=== PATIENT | male | born 1980 | race African-American/Black ===

== ENCOUNTER 2020-07-18 01:07 | Observation (INO) | payer OTHER ==
[2020-07-18] MEDS ORDERED: SODIUM CHLORIDE 0.9% 1,000 ML IV STA (01:25)
[2020-07-18] MEDS ORDERED: ONDANSETRON 4 MG/2 ML VIAL IVP STA (01:25)
[2020-07-18] MEDS ORDERED: HYDROmorphone 0.5 MG/0.5 ML SYRINGE IVP STA ×2 (01:25→03:44)
[2020-07-18] MEDS ORDERED: diphenhydrAMINE 50 MG/ML 1 ML VIAL IVP STA (01:25)
[2020-07-18] MEDS ORDERED: FAMOTIDINE 20 MG/2 ML VIAL IV STA (01:26)
[2020-07-18 02:46] LABS: ALT 20 U/L (4-49); AST 22 U/L (17-59); African American GFR (CKD) >90 (>60 ml/min/1.73 sqM); Albumin 4.5 g/dL (3.5-5.0); Alkaline Phosphatase 72 U/L (38-126); Anion Gap 10 mmol/L; Blood Urea Nitrogen 18 mg/dL (9-20); Calcium 10.4 mg/dL (8.4-10.2); Carbon Dioxide 29 mmol/L (22-30); Chloride 100 mmol/L (98-107); Glucose 121 mg/dL (74-99); Lipase 99 U/L (23-300); Non-African American GFR(CKD) >90 (>60 ml/min/1.73 sqM); Potassium 3.8 mmol/L (3.5-5.1); Sodium 139 mmol/L (137-145); Total Bilirubin 1.1 mg/dL (0.2-1.3); Total Protein 7.3 g/dL (6.3-8.2)
[2020-07-18 03:13] LABS: Anisocytosis Slight; Basophils # (A) 0.1 k/uL (0-0.2); Basophils % (A) 1 %; Eosinophils # (A) 0.1 k/uL (0-0.7); Eosinophils % (A) 1 %; HCT 33.4 % (39.0-53.0); HGB 9.9 gm/dL (13.0-17.5); Hypochromasia Marked; Lymphocytes # (A) 2.6 k/uL (1.0-4.8); Lymphocytes % (A) 31 %; MCH 20.9 pg (25.0-35.0); MCHC 29.7 g/dL (31.0-37.0); MCV 70.3 fL (80.0-100.0); Mean Platelet Volume 6.3; Microcytosis Marked; Monocytes # (A) 0.9 k/uL (0-1.0); Monocytes % (A) 10 %; Neutrophils # (A) 4.7 k/uL (1.3-7.7); Neutrophils % (A) 55 %; Platelet Count 469 k/uL (150-450); Poikilocytosis Moderate; RBC 4.75 m/uL (4.30-5.90); RDW 18.2 % (11.5-15.5); WBC 8.5 k/uL (3.8-10.6)
--- NOTE | 2020-07-18 03:23 | ED ---
Abdominal Pain HPI - General Chief Complaint: Abdominal Pain Stated Complaint: ABD Pain Time Seen by Provider: 07/18/20 01:20 Source: patient Mode of arrival: ambulatory Limitations: no limitations - History of Present Illness Initial Comments: 40 year-old male patient presents to the emergency department for evaluation of abdominal pain, nausea, and vomiting. States symptoms started yesterday morning and have been persistent. Patient apparent was at [facility] and left prior to completing treatment, he arrived with an IV in the left arm. Patient states that he has been having this same pain and symptoms for the last couple of years. States that he was supposed to get an upper GI scope and never followed up. He does take carafate and other medications for his symptoms. He denies any fever or chills. Denies any pain radiating to his back. Denies hematemesis, hematochezia, melena. Denies fever or chills. States his last bowel movement was 2 days ago. Does admit to smoking marijuana almost on a daily basis. Denies any other street drugs or alcohol use. Patient denies any recent rash, cough, shortness of breath, chest pain, numbness, tingling, dizziness, weakness, hematuria, dysuria, urinary urgency, urinary frequency, headache, visual changes, or any other complaints. - Related Data Allergies Allergy/AdvReac Type Severity Reaction Status Date / Time No Known Allergies Allergy Verified 07/18/20 01:16 Review of Systems ROS Statement: Those systems with pertinent positive or pertinent negative responses have been documented in the HPI. ROS Other: All systems not noted in ROS Statement are negative. Past Medical History Past Medical History: GERD/Reflux, GI Bleed, Hypertension History of Any Multi-Drug Resistant Organisms: None Reported Past Surgical History: No Surgical Hx Reported Past Psychological History: No Psychological Hx Reported Smoking Status: Never smoker, Vaper Past Alcohol Use History: Rare Past Drug Use History: Marijuana General Exam Limitations: no limitations General appearance: alert, in no apparent distress, other (Physical well- developed, well-nourished adult male patient in no acute distress. Vital signs upon presentation temperature 97.8F, pulse 96, respirations 20, blood pressure 146/85, pulse ox 99% on room air.) Eye exam: Present: normal appearance, PERRL, EOMI. Absent: scleral icterus, conjunctival injection, periorbital swelling ENT exam: Present: normal exam, normal oropharynx, mucous membranes moist Respiratory exam: Present: normal lung sounds bilaterally. Absent: respiratory distress, wheezes, rales, rhonchi, stridor Cardiovascular Exam: Present: regular rate, normal rhythm, normal heart sounds. Absent: systolic murmur, diastolic murmur, rubs, gallop, clicks GI/Abdominal exam: Present: soft, normal bowel sounds. Absent: distended, tenderness, guarding, rebound, rigid Neurological exam: Present: alert, oriented X3, CN II-XII intact Psychiatric exam: Present: normal affect, normal mood Skin exam: Present: warm, dry, intact, normal color. Absent: rash Course Vital Signs 07/18/20 07/18/20 01:13 01:26 Temperature 97.8 F Pulse Rate 96 74 Respiratory 20 15 Rate Blood Pressure 146/85 149/98 O2 Sat by Pulse 99 100 Oximetry Medical Decision Making - Medical Decision Making 40 year-old male patient presents with abdominal pain and vomiting since yesterday morning. States he has similar symptoms intermittently over the last couple of years. Currently taking carafate and "other stomach medications". Physical exam reveals soft/non-tender abdomen. Labs reviewed and showed hgb 9.9. Patient denies history of anemia or low hgb. Patient has received care at [facility], did request records...request still pending. Denies any bloody or black bowel movements. Did attempt a rectal exam for occult blood, no stool in the rectal vault. Signs are stable. Patient will be admitted to the hospital for repeat CBCs and further evaluation by GI. Patient is agreeable to this plan. Case discussed with my attending Dr. Cole. - Lab Data Result diagrams: 07/18/20 01:25 07/18/20 01:25 Lab Results 07/18/20 07/18/20 07/18/20 Range/Units 01:25 01:25 01:26 WBC 8.5 (3.8-10.6) k/uL RBC 4.75 (4.30-5.90) m/uL Hgb 9.9 L (13.0-17.5) gm/dL Hct 33.4 L (39.0-53.0) % MCV 70.3 L (80.0-100.0) fL MCH 20.9 L (25.0-35.0) pg MCHC 29.7 L (31.0-37.0) g/dL RDW 18.2 H (11.5-15.5) % Plt Count 469 H (150-450) k/uL MPV 6.3 Hypochromasia Marked Poikilocytosis Moderate Anisocytosis Slight Microcytosis Marked Sodium 139 (137-145) mmol/L Potassium 3.8 (3.5-5.1) mmol/L Chloride 100 (98-107) mmol/L Carbon Dioxide 29 (22-30) mmol/L Anion Gap 10 mmol/L BUN 18 (9-20) mg/dL Creatinine 0.76 (0.66-1.25) mg/dL Est GFR (CKD-EPI)AfAm >90 (>60 ml/min/1.73 sqM) Est GFR (CKD-EPI)NonAf >90 (>60 ml/min/1.73 sqM) Glucose 121 H (74-99) mg/dL Plasma Lactic Acid Kevin 0.8 (0.7-2.0) mmol/L Calcium 10.4 H (8.4-10.2) mg/dL Total Bilirubin 1.1 (0.2-1.3) mg/dL AST 22 (17-59) U/L ALT 20 (4-49) U/L Alkaline Phosphatase 72 (38-126) U/L Total Protein 7.3 (6.3-8.2) g/dL Albumin 4.5 (3.5-5.0) g/dL Lipase 99 (23-300) U/L Disposition Clinical Impression: Abdominal pain, GI bleed Disposition: ADMITTED IP TO THIS [facility] Condition: Serious Referrals: None,Stated [Primary Care Provider] - 1-2 days Decision to Admit Reason: Admit from EC Decision Date: 07/18/20 Decision Time: 03:45
[2020-07-18] MEDS ORDERED: PANTOPRAZOLE 40 MG/10 ML VIAL IVP STA (03:50)
[2020-07-18] MEDS ORDERED: ONDANSETRON 4 MG/2 ML VIAL IVP PRN (03:50)
[2020-07-18] MEDS ORDERED: NALOXONE 0.4 MG/ML 1 ML VIAL IV PRN (03:50)
[2020-07-18] MEDS ORDERED: SODIUM CHLORIDE 0.9% 1,000 ML IV SCH (04:00)
[2020-07-18 04:45] LABS: Polychromasia Present
[2020-07-18 04:46] LABS: Ovalocytes Present; RBC Fragments Present; Target Cells Present
[2020-07-18 04:51] LABS: Anisocytosis Slight; HCT 29.2 % (39.0-53.0); HGB 8.9 gm/dL (13.0-17.5); Hypochromasia Marked; MCH 21.7 pg (25.0-35.0); MCHC 30.7 g/dL (31.0-37.0); MCV 70.8 fL (80.0-100.0); Mean Platelet Volume 8.1; Microcytosis Marked; Platelet Count 421 k/uL (150-450); Poikilocytosis Moderate; RBC 4.12 m/uL (4.30-5.90); RDW 18.2 % (11.5-15.5); WBC 9.3 k/uL (3.8-10.6)
--- NOTE | 2020-07-18 05:37 | P.HPIM ---
History of Present Illness H&P Date: 07/18/20 Chief Complaint: Epigastric abdominal pain 40-year-old male with history of GERD Patient comes in with 1 day history of recurrent gastric abdominal pain he claims it's problem has been going on for about couple years now he denies any GI bleeding or melena. Patient seemed to be sleepy and disengaged looks like he is providing unreliable history. He claimed that he went to [facility] as he got care over there in the past he also claims that he had upper GI scoping in [place] for similar problem. He is not sure if any diagnoses he was waiting in the ER got frustrated and decided to leave the hospital. ER noted that he arrived here with an IV line in his arm. Patient reports that since yesterday he's been having repeated episodes of vomiting he described it as yellowish in color denies any bleeding or coffee- ground vomiting he otherwise denies any chest pain or trouble breathing denies any headache dizziness or lightheadedness denies any fevers or chills denies any sick contact denies any recent travel he denies any changes in his bowel habits he denies any melena or bloody bowel movement In the ED blood work did show severe microcytic anemia with picture suggestive of iron deficiency anemia slightly elevated platelets. Patient admitted for further care and close monitoring Patient denies any heavy alcohol consumption or daily consumption, he denies any drugs other than using marijuana. He admits to smoking. Patient denies any blood thinners. He admits to occasional NSAIDs last dose was yesterday when he started having the epigastric pain but he denies taking it on regular basis Review of Systems Pertinent positives as noted in HPI. All other systems were reviewed and are negative Past Medical History Past Medical History: GERD/Reflux, GI Bleed, Hypertension History of Any Multi-Drug Resistant Organisms: None Reported Past Surgical History: No Surgical Hx Reported Past Psychological History: No Psychological Hx Reported Smoking Status: Never smoker, Vaper Past Alcohol Use History: Rare Past Drug Use History: Marijuana - Past Family History Family Family Medical History: No Reported History Medications and Allergies Allergies Allergy/AdvReac Type Severity Reaction Status Date / Time No Known Allergies Allergy Verified 07/18/20 01:16 Physical Exam Vitals: Vital Signs Temp Pulse Resp BP Pulse Ox 07/18/20 04:51 83 17 135/95 99 07/18/20 01:26 74 15 149/98 100 07/18/20 01:13 97.8 F 96 20 146/85 99 Intake and Output 07/17/20 07/17/20 07/18/20 14:59 22:59 06:59 Other: Weight 77.111 kg Constitutional: No acute distress, conversant, pleasant Eyes: Anicteric sclerae, moist conjunctiva, Pupils equal round reactive to light ENMT: NC/AT Oropharynx clear, no erythema, or exudates Neck: Supple, FROM, no masses, or JVD No carotid bruits No thyromegaly Lungs: Clear to auscultation Clear to percussion Normal respiratory effort, no accessory muscle use Cardiovascular: Heart regular in rate and rhythm, No murmurs, gallops, or rubs No peripheral edema Abdominal: Soft, slight discomfort to deep palpation of epigastric region no guarding, rebound or rigidity Abdomen moving with respiration Normoactive bowel sounds No hepatomegaly, No splenomegaly No palpable mass No abdominal wall hernia noted Skin: Normal temperature, tone, texture, turgor No induration No subcutaneous nodules No rash, lesions No ulcers Tattoos throughout his body Extremities: No digital cyanosis No clubbing Pedal pulses intact and symmetrical Radial pulses intact and symmetrical No calf tenderness Psychiatric: Alert and oriented to person, place and time Appropriate affect fair judgement Neuro Muscles Strength 5/5 in all 4 extremities Sensation to light touch grossly present throughout Cranial nerves II-XII grossly intact No focal sensory deficits Lymphatics: no palpable cervical or supraclavicular , or inguinal lymph nodes Results CBC & Chem 7: 07/18/20 04:40 07/18/20 01:25 Labs: Abnormal Lab Results - Last 24 Hours (Table) 07/18/20 07/18/20 07/18/20 Range/Units 01:25 01:25 04:40 RBC 4.12 L (4.30-5.90) m/uL Hgb 9.9 L 8.9 L (13.0-17.5) gm/dL Hct 33.4 L 29.2 L (39.0-53.0) % MCV 70.3 L 70.8 L (80.0-100.0) fL MCH 20.9 L 21.7 L (25.0-35.0) pg MCHC 29.7 L 30.7 L (31.0-37.0) g/dL RDW 18.2 H 18.2 H (11.5-15.5) % Plt Count 469 H (150-450) k/uL Glucose 121 H (74-99) mg/dL Calcium 10.4 H (8.4-10.2) mg/dL Assessment and Plan Assessment: Severe microcytic anemia unknown baseline Possible chronic upper GI bleeding secondary to long history of GERD Epigastric abdominal pain Plan Nothing by mouth IV fluid hydration Protonix IV twice a day GI consultation to consider EGD Obtain records Pain control with opiates Monitor hemoglobin every 6 hours CODE STATUS: Full code DVT prophylaxis: Mechanical Discussed with: Patient, ER, Anticipated length of stay less than [address]: Home A total of 65 minutes was spent on the care of this complex patient more than 50% of the time was spent in counseling and care coordination.
[2020-07-18] MEDS ORDERED: PANTOPRAZOLE 40 MG/10 ML VIAL IVP SCH ×2 (09:00→10:00)
[2020-07-18 09:42] VITALS: RESP 18
[2020-07-18] MEDS: HYDROmorphone 0.5 MG/0.5 ML SYRINGE IVP PRN ×2 (09:42→13:12)
[2020-07-18 10:56] LABS: Anisocytosis Slight; HCT 29.6 % (39.0-53.0); HGB 9.1 gm/dL (13.0-17.5); Hypochromasia Marked; MCHC 30.9 g/dL (31.0-37.0); MCV 71.1 fL (80.0-100.0); Mean Platelet Volume 7.4; Microcytosis Marked; Platelet Count 409 k/uL (150-450); Poikilocytosis Moderate; RBC 4.16 m/uL (4.30-5.90); WBC 8.3 k/uL (3.8-10.6)
--- NOTE | 2020-07-18 11:17 | P.PN ---
Progress Note - Text Progress Note Date: 07/18/20 Patient is seen and examined again today. No chest pain no abdominal pain. No gross bleeding. Continue PPI and IV fluids, monitor H&H. GI consultation.
[2020-07-18] MEDS ORDERED: LIDOCAINE 1% INJ 10MG/ML (20 ML MDV) ONE (13:25)
[2020-07-18] MEDS ORDERED: PROPOFOL 10 MG/ML 20 ML VIAL IV ONE (13:25)
[2020-07-18] MEDS ORDERED: GLYCOPYRROLATE 0.2 MG/ML 2 ML VIAL ONE (13:25)
[2020-07-18] MEDS ORDERED: KETAMINE 10 MG/ML 20 ML VIAL ONE (13:25)
[2020-07-18] MEDS ORDERED: IV FLUID CONTINUATION 1,000 ML IV ONE (13:38)
--- NOTE | 2020-07-18 13:56 | P.CONS ---
History of Present Illness - Reason for Consult Consult date: 07/18/20 GI bleed Requesting physician: Frank Smith - Chief Complaint Abdominal pain - History of Present Illness 40-year-old male with a medical history significant for reflux and presented in for abdominal pain. The patient reports long-standing history of pain in the stomach going on for years. He reports associated nausea and episodes of vomiting. Yesterday he reports 5 episodes of nonbloody emesis. He does report intermittently seen coffee-ground emesis and dark stools in the past but none recently. He denies any history of peptic ulcer disease but does report a long- standing history of reflux on Carafate and PPI therapy. He reports that previously he had a EGD 2-3 months ago in [place] and was told to follow-up but failed to do so. He denies any prior colonoscopy. He denies any tobacco use and reports only occasional alcohol use. He also reports previously being told of a hiatal hernia and hypertension. He denies any NSAID use. He does use marijuana frequently. He was recently at [facility] in the waiting room for similar complaints but left due to the wait. Review of Systems REVIEW OF SYSTEMS: CONSTITUTIONAL: Denies any fevers, chills, weight change or fatigue. CARDIOVASCULAR: Denies any chest pain, palpitations high or low blood pressures, but does report a history of hypertension. RESPIRATORY: Denies any shortness of breath, hemoptysis or cough. GENITOURINARY: No dysuria or hematuria. MUSCULOSKELETAL: No weakness reported. SKIN: Denies any new rashes or lesions, jaundice or pallor. PSYCHIATRIC: Denies any depression or anxiety, does report frequent marijuana us e. NEUROLOGY: Denies headache, denies any new focal deficits. EARS/NOSE/THROAT: No recent hearing change, congestion, nasal discharge or sore throat. EYES: No pain in eyes, discharge or change in vision. GASTROINTESTINAL: As per HPI. Past Medical History Past Medical History: GERD/Reflux, GI Bleed, Hypertension Additional Past Medical History / Comment(s): Abdominal pain/nausea and vomiting past couple years/recently seen at [facility] but left before work up complete, upper and lower GI bleeds History of Any Multi-Drug Resistant Organisms: None Reported Past Surgical History: No Surgical Hx Reported Past Anesthesia/Blood Transfusion Reactions: Unable to Obtain Additional Past Anesthesia/Blood Transfusion Reaction / Comm: Pt states never had surgery. Smoking Status: Vaper - Past Family History Mother Family Medical History: No Reported History Additional Family Medical History / Comment(s): Mother is healthy. Father History Unknown: Yes Family Family Medical History: No Reported History Medications and Allergies Home Medications Medication Instructions Recorded Confirmed Type No Known Home Medications 07/18/20 07/18/20 History Allergies Allergy/AdvReac Type Severity Reaction Status Date / Time No Known Allergies Allergy Verified 07/18/20 06:59 Physical Exam Vitals: Vital Signs Temp Pulse Resp BP Pulse Ox 07/18/20 09:40 64 18 142/93 100 07/18/20 04:51 83 17 135/95 99 07/18/20 01:26 74 15 149/98 100 07/18/20 01:13 97.8 F 96 20 146/85 99 Intake and Output 07/17/20 07/18/20 07/18/20 22:59 06:59 14:59 Other: Weight 77.111 kg 77.111 kg On physical examination, patient appears comfortable in no apparent distress. HEAD: Normocephalic, atraumatic. EYES: No scleral icterus. No conjunctival injection. MOUTH: No lesions, tongue midline. NECK: Trachea midline, no gross abnormalities. CHEST: Clear to auscultation with no wheezing or rhonchi appreciated. HEART: Regular rate and rhythm. ABDOMEN: Soft, nontender to palpation. Bowel sounds are positive. No organomegaly. No guarding or rigidity. EXTREMITIES: No pedal edema. SKIN: No rashes, no jaundice. NEUROLOGIC: Alert and oriented x3. No focal deficits. Results CBC & Chem 7: 07/18/20 10:45 07/18/20 01:25 Labs: Abnormal Lab Results - Last 24 Hours (Table) 07/18/20 07/18/20 07/18/20 Range/Units 01:25 01:25 04:40 RBC 4.12 L (4.30-5.90) m/uL Hgb 9.9 L 8.9 L (13.0-17.5) gm/dL Hct 33.4 L 29.2 L (39.0-53.0) % MCV 70.3 L 70.8 L (80.0-100.0) fL MCH 20.9 L 21.7 L (25.0-35.0) pg MCHC 29.7 L 30.7 L (31.0-37.0) g/dL RDW 18.2 H 18.2 H (11.5-15.5) % Plt Count 469 H (150-450) k/uL Glucose 121 H (74-99) mg/dL Calcium 10.4 H (8.4-10.2) mg/dL 07/18/20 Range/Units 10:45 RBC 4.16 L (4.30-5.90) m/uL Hgb 9.1 L (13.0-17.5) gm/dL Hct 29.6 L (39.0-53.0) % MCV 71.1 L (80.0-100.0) fL MCH 22.0 L (25.0-35.0) pg MCHC 30.9 L (31.0-37.0) g/dL RDW 18.0 H (11.5-15.5) % Plt Count (150-450) k/uL Glucose (74-99) mg/dL Calcium (8.4-10.2) mg/dL Assessment and Plan (1) Abdominal pain Narrative/Plan: 40-year-old male with a long-standing history of abdominal pain and a known history of hiatal hernia and reflux disease. He presents for evaluation of abdominal pain. He reports intermittent nausea and vomiting, intermittent dark vomitus and dark stools. No recent signs or symptoms of GI bleeding. He was found to have a microcytic anemia on presentation was unaware of a history of anemia. Unclear etiology of symptoms of abdominal pain, may be functional in nature, related to peptic ulcer disease, uncontrolled reflux or other etiology. Current Visit: Yes Status: Acute Code(s): R10.9 - UNSPECIFIED ABDOMINAL PAIN SNOMED Code(s): 84664469 (2) Microcytic hypochromic anemia Narrative/Plan: Patient denies any history of anemia, previously he has seen some dark emesis and dark colored stool but none recently. Current Visit: Yes Status: Acute Code(s): D50.9 - IRON DEFICIENCY ANEMIA, UNSPECIFIED SNOMED Code(s): 10868368 Plan: Supportive care Nothing by mouth Plan for EGD for further evaluation Protonix twice daily Carafate 4 times a day before meals added Plan for EGD with all of the risks, benefits and possible complications extensive patient length with HIS questions answered to his satisfaction Avoid NSAID use Patient may benefit from iron studies in anemia evaluation as per hematology No plan for colonoscopy at this time, however extensive discussion with the patient and recommend follow-up after discharge for scheduling of colonoscopy Thank you for allowing us to participate in the care of the patient
--- NOTE | 2020-07-18 13:59 | P.PCN ---
Date of Procedure: 07/18/20 Description of Procedure: BRIEF HISTORY: 40-year-old male with a medical history significant for reflux and presented in for abdominal pain. The patient reports long-standing history of pain in the stomach going on for years. He reports associated nausea and episodes of vomiting. Yesterday he reports 5 episodes of nonbloody emesis. He does report intermittently seen coffee-ground emesis and dark stools in the past but none recently. He denies any history of peptic ulcer disease but does report a long- standing history of reflux on Carafate and PPI therapy. He reports that previously he had a EGD 2-3 months ago in [place] and was told to follow-up but failed to do so. He denies any prior colonoscopy. He denies any tobacco use and reports only occasional alcohol use. He also reports previously being told of a hiatal hernia and hypertension. He denies any NSAID use. He does use marijuana frequently. He was recently at [facility] in the waiting room for similar complaints but left due to the wait. PROCEDURE PERFORMED: Esophagogastroduodenoscopy with biopsy . PREOPERATIVE DIAGNOSIS: Epigastric abdominal pain, anemia. ESTIMATED BLOOD LOSS: Minimal. IV sedation per anesthesia. PROCEDURE: After informed consent was obtained, the patient was brought into the endoscopy unit. IV sedation was administered by Anesthesia under continuous monitoring. Initially the Olympus GIF-190 video endoscope was inserted into the mouth. Esophagus intubated without any difficulty. It was gradually advanced into the stomach and duodenum and carefully examined. The bulb and the second part of the duodenum appeared normal, With biopsies taken. The scope at this time was withdrawn to the stomach, adequately insufflated with air, and upon careful examination, mucosa of the antrum, body, cardia and the fundus appeared normal, With biopsies taken. The scope was then withdrawn into the esophagus. The GE junction was located at 40 cm from the incisors. 7 cm of LA grade C distal esophagitis from 33 cm from the incisors to the GE junction at 40 cm from the incisors. 3 cm hiatal hernia noted. Otherwise no evidence of active bleeding with biopsies of the lower esophagus taken. The patient tolerated the procedure well. IMPRESSION: 1. LA grade C distal esophagitis. 2. Hiatal hernia. 3. No active bleeding, or old blood noted. 4. Biopsies of the duodenum, antrum body and lower esophagus. RECOMMENDATIONS: The findings of this examination were discussed with the patient.. Okay for full liquid diet and advance as tolerated. Patient should be discharged on Protonix twice daily and Carafate 4 times a day for the next 4-6 weeks. Patient should follow-up in the GI clinic for evaluation and discussion about possible colonoscopy for evaluation of anemia. Patient will benefit from anemia laboratory evaluation, we will defer to primary team. Otherwise, the gastroenterology service will sign off of the patient and patient is okay for discharge on otherwise medically stable. If further gastroenterology evaluation is required the patient will need transfer to outside facility.
--- NOTE | 2020-07-18 14:36 | P.DS ---
Providers Date of admission: 07/18/20 03:40 Expected date of discharge: 08/06/20 Attending physician: Frank Smith MD Consults: 07/18/20 03:50 Consult Physician Routine Consulting Provider: Timbo oDdd Consult Reason/Comments: GI bleed; abd pain Do you want consulting provider notified?: Yes Primary care physician: Stated None Hospital Course: HPI: 40-year-old male with history of GERD Patient comes in with 1 day history of recurrent gastric abdominal pain he claims it's problem has been going on for about couple years now he denies any GI bleeding or melena. Patient seemed to be sleepy and disengaged looks like he is providing unreliable history. He claimed that he went to [facility] as he got care over there in the past he also claims that he had upper GI scoping in [place] for similar problem. He is not sure if any diagnoses he was waiting in the ER got frustrated and decided to leave the hospital. ER noted that he arrived here with an IV line in his arm. Patient reports that since yesterday he's been having repeated episodes of vomiting he described it as yellowish in color denies any bleeding or coffee- ground vomiting he otherwise denies any chest pain or trouble breathing denies any headache dizziness or lightheadedness denies any fevers or chills denies any sick contact denies any recent travel he denies any changes in his bowel habits he denies any melena or bloody bowel movement In the ED blood work did show severe microcytic anemia with picture suggestive of iron deficiency anemia slightly elevated platelets. Patient admitted for further care and close monitoring Patient denies any heavy alcohol consumption or daily consumption, he denies any drugs other than using marijuana. He admits to smoking. Patient denies any blood thinners. He admits to occasional NSAIDs last dose was yesterday when he started having the epigastric pain but he denies taking it on regular basis Hospital course and treatment: Patient was admitted to the hospital with being sleepy and lethargic. He was found to have anemia with a hemoglobin of around 9. Unknown etiology of anemia, he was treated with Protonix and IV fluids. He was evaluated by GI, patient underwent an EGD which was consistent with 1. LA grade C distal esophagitis. 2. Hiatal hernia. 3. No active bleeding, or old blood noted. 4. Biopsies of the duodenum, antrum body and lower esophagus. GI recommended Protonix twice a day and Carafate 4 times a day for 4-6 weeks. He remains stable and will be discharged home to follow-up with PCP regarding anemia workup and with GI. He'll be discharged on Protonix and Carafate Patient Condition at Discharge: Stable Plan - Discharge Summary Discharge Rx Participant: No New Discharge Prescriptions: New Pantoprazole Sodium [Protonix] 40 mg PO BID 30 Days #60 tablet. Sucralfate [Carafate] 1 gm PO ACHS 30 Days #120 tablet Discharge Medication List Pantoprazole Sodium [Protonix] 40 mg PO BID 30 Days #60 tablet. 07/18/20 [Rx] Sucralfate [Carafate] 1 gm PO ACHS 30 Days #120 tablet 07/18/20 [Rx] Follow up Appointment(s)/Referral(s): None,Stated [Primary Care Provider] - 1-2 days Activity/Diet/Wound Care/Special Instructions: Follow-up with GI in 1-2 weeks Discharge Disposition: HOME SELF-CARE
[2020-07-18 15:00] VITALS: BP 131/95; PULSE 88; TEMP 98.8
[2020-07-18] MEDS ORDERED: SUCRALFATE 1 GM TAB PO SCH (17:30)
== END 2020-07-18 15:44 | disposition home or self-care (01) ==
LOC: EC 01:07 → 6NMEDSUR 03:40
PROVIDERS: ADMIT Internal Medicine; ATTEND Internal Medicine
DX: K21.00 Gastro-esophageal reflux disease with esophagitis, without bleeding (principal); D50.9 Iron deficiency anemia, unspecified; K44.9 Diaphragmatic hernia without obstruction or gangrene; I10 Essential (primary) hypertension; F12.90 Cannabis use, unspecified, uncomplicated; F17.290 Nicotine dependence, other tobacco product, uncomplicated; Z87.19 Personal history of other diseases of the digestive system
CPT/HCPCS: 96376; 96361; 96374; 96375; 99284; 88305; 80053; 83605; 83690; 85025; 85027; 88312; 87635; 43239; G0378; J1200; J2405; J2001; J2704; C9113; J1170